=== PATIENT | male | born 1965 | race Caucasian/White ===

== ENCOUNTER 2018-11-12 12:05 | Outpatient (REF) | payer MEDICARE, SELFPAY ==
[2018-11-12 19:51] LABS: BUN 17 mg/dL (7-18); CREATININE 0.99 mg/dL (0.70-1.30); Calcium 8.9 mg/dL (8.5-10.1); Chloride 106 mmol/L (98-107); Glucose 100 mg/dL (70-100); Potassium 4.4 mmol/L (3.5-5.1); Sodium 142 mmol/L (136-145); TSH (W/Ref FT4) 3.29 uIU/mL (0.358-3.74)
== END 2018-11-12 12:25 ==
LOC: LBN 12:05
PROVIDERS: PCP Family Medicine; Visit Provider Family Medicine
DX: R73.01 Impaired fasting glucose (principal); E78.5 Hyperlipidemia, unspecified
CPT/HCPCS: 80048; 84443

== ENCOUNTER 2018-11-20 01:23 | Outpatient (CLI) | payer MEDICARE, SELFPAY ==
--- NOTE | 2018-11-20 10:01 | DI.CTLCSR_ITS ---
SYMPTOM/DIAGNOSIS: ROUTINE LUNG CANCER SCREENING, NICOTINE DEPENDENCE F17.210, CIGARETTE LOW DOSE CHEST CT FOR LUNG SCREENING: The noncontrast enhanced examination was carried out according to the usual protocol. No nodule or infiltrate is demonstrated. There is no pleural effusion. There are small regions of scarring and emphysematous changes noted in the lung apices more prominent on the right side. The heart is not enlarged. There is no evidence of a pleural or pericardial effusion. There is no evidence of gross hilar or mediastinal adenopathy SUMMARY: No pulmonary nodule is identified. Follow up surveillance of this patient with routine annual screening low dose chest CT is recommended. Lung Rads 1, negative study
== END 2018-11-20 01:43 ==
PROVIDERS: PCP Family Medicine; Visit Provider Family Medicine
DX: Z12.2 Encounter for screening for malignant neoplasm of respiratory organs (principal); F17.210 Nicotine dependence, cigarettes, uncomplicated; J98.4 Other disorders of lung
CPT/HCPCS: G0297

== ENCOUNTER 2022-11-07 10:36 | Emergency (ER) | payer MEDICARE, SELFPAY ==
[2022-11-07 11:08] VITALS: BP 111/72; PULSE 68; RESP 18; O2SAT 99
[2022-11-07] MEDS: Lidocaine 5% Patch 1 PATCH TP (12:15)
[2022-11-07] MEDS: Acetaminophen 500 MG TAB PO (12:15)
--- NOTE | 2022-11-07 12:18 | W.ED.GENAD ---
Discharge Plan Disposition Patient Disposition: Home Condition: Stable Discharge Details Clinical Impression: Right rib fracture Primary Care Provider: Joey Sullivan ED Provider: Ayush Mabry Home Meds and New Rx's Prescriptions: New oxycodone 5 mg tablet 5 mg PO BID PRN (Reason: severe pain) Qty: 10 0RF Discharge Instructions Instructions: Rib Fracture (ED) Additional Instructions: Please use incentive spirometer every 2 hours while awake for the next 1 week. Please take naproxen for pain. Dose according to label. Use lidocaine patches for pain. Dose according to label. Please take acetaminophen (tylenol) - 650mg every 6 hours by mouth as needed for pain. Take oxycodone as prescribed only for severe pain refractory to other above medications. Please contact your primary care physician to arrange follow-up. Return to the ER immediately for any worsening or new concerning symptoms. Referrals: Joey Sullivan DO [Primary Care Provider] - Medical Decision Making 1220 --57-year-old male here with right lower lateral rib pain that is persisted 1 week status post fall from standing with direct impact to his ribs. Patient has focal tenderness right lower lateral ribs. No crepitus. Lungs clear to auscultation bilaterally and patient is saturating well in no respiratory distress. Patient clinically stable. Abdominal exam benign. X-ray of the chest and ribs to assess for fracture and pneumothorax. We will treat pain with Tylenol and lidocaine patch. Patient has been taking naproxen. 1315 --x-ray with rib series interpreted by radiology: Right-sided rib fracture present. Plan to treat with incentive spirometry and analgesia. I will provide short course of oxycodone. Patient provided informed consent to this treatment. Usual customary discharge instructions otherwise reviewed. HPI General Mode of arrival: ambulatory. Date/Time Provider Initiated Documentation: 11/07/22 11:55. Limitations to Documentation: no limitations. Information obtained by: patient. HPI Narrative: 57-year-old male presents with chief complaint of right rib pain. Patient notes he slipped and fell 1 week ago and landed on his right side. He has had pain in his right rib since the fall. He notes difficulty sleeping at night. Pain is worse with deep inspiration. No associated abdominal pain. Related Data Home Medications Medication Instructions Recorded Confirmed oxycodone 5 mg tablet 5 mg PO BID PRN severe pain #10 11/07/22 tabs Previous Rx's Medication Instructions Recorded oxycodone 5 mg tablet 5 mg PO BID PRN severe pain #10 11/07/22 tabs Allergies Allergy/AdvReac Type Severity Reaction Status Date / Time No Known Drug Allergies Allergy Verified 11/07/22 11:11 General Stated Complaint: Orthopedic ELICEO: 4 Review of Systems Cardiovascular Cardiovascular: Denies dyspnea Respiratory Respiratory: Denies dyspnea Musculoskeletal Musculoskeletal: Reports as per HPI PFSH All Active Problems (Updated 11/07/22 @ 13:16 by Ayush Mabry MD) Right rib fracture (Acute) Depression (Chronic 10/25/17) Herniated lumbar intervertebral disc (Acute 10/25/17) Herniation of intervertebral disc of cervical region (Acute 10/25/17) Peptic ulcer (Acute 10/25/17) Swallowing painful (Acute 10/25/17) Testicular cyst (Acute 10/25/17) Tobacco use disorder (Acute 10/25/17) Impaired fasting glucose (Acute 10/25/17) Hyperlipidemia, unspecified (Acute 10/25/17) Hemoptysis (Acute 10/25/17) H/O drug abuse (Acute 10/25/17) Esophagitis (Acute 10/25/17) EGD W/ BX 11/18/11 Dysphagia, unspecified (Acute 10/25/17) Cervicalgia (Acute 10/25/17) Carpal tunnel syndrome, unspecified upper limb (Acute 10/25/17) Back pain (Acute 10/25/17) Surgical History EGD w/ bx (11/18/11) GANGLION CYST REMOVAL RIGHT HAND (11/17/17) Laminectomy x2 Lumbar Fusion Shoulder AC Resection Right Family History Mother Essential hypertension Paternal Grandfather CAD (coronary artery disease) Neoplasm Prostate Sister CAD (coronary artery disease) Sister No problems noted. Father No problems noted. Other Pacemaker Social History Smoking/Tobacco Use Status: Former Tobacco Use Smoking risk assessment performed?: Yes Alcohol Intake: never Drug use: Daily Substance use type: marijuana Household members: none Housing: house current occupation: works at [employer] on saturdays Pets and animals: Yes Pets and animals: dog(s) Do you feel safe at home: Yes Do you feel safe in your relationship?: Yes Exam Const General: cooperative and no acute distress HENMT Mouth: moist mucous membranes Neck Neck: trachea midline Chest Chest: no crepitus and tenderness rib (RIGHT LOWER LATERAL) Resp Auscultation: clear to auscultation bilaterally, no rales, no rhonchi and no wheezes Cardio Rate: regular rate and not tachycardic Rhythm: regular rhythm GI Palpation: soft, not firm, no guarding, no masses, not rigid and nontender Skin General skin exam: no rashes or lesions noted Neuro General: patient alert, patient awake and tone normal Extrem General: no edema Psych Appearance: grossly normal Mental Status: mental status grossly normal Course Vital Signs Vital signs: Vital Signs Pulse 68 11/07/22 11:08 Respiratory Rate 18 11/07/22 11:08 Blood Pressure 111/72 11/07/22 11:08 Pulse Oximetry 99 11/07/22 11:08 Temperature Source Skin 11/07/22 11:08 Pulse 68 11/07/22 11:08 Respiratory Rate 18 11/07/22 11:08 Respiratory Effort Normal 11/07/22 11:12 Blood Pressure 111/72 11/07/22 11:08 Blood Pressure Position Sitting 11/07/22 11:08 Pulse Oximetry 99 11/07/22 11:08 Oxygen Delivery Method Room Air 11/07/22 11:08 Oxygen Flow Rate 0 11/07/22 11:08 Pain Level 5 11/07/22 11:19 Comment Night time pain is a 10 11/07/22 11:08
--- NOTE | 2022-11-07 12:30 | DI.RAD_ITS ---
Exam(s) XR RIBS RT W PA LAT CHEST CLINICAL HISTORY: pain, fall 1 wk ago, ttp lower ant/lat ribs. COMPARISON: No exams were available for comparison TECHNIQUE:: PA and lateral views of the chest and four views of the right ribs were performed. FINDINGS: LUNGS:Clear. No pleural abnormality seen. HEART: Normal. MEDIASTINUM: Normal. BONES: Mildly displaced fracture lateral right 7th rib. Nondisplaced right 8th rib fracture. No bon y destructive lesion is seen. Old right distal clavicle deformity. Degenerative changes noted in th e spine. OTHER FINDINGS: None. IMPRESSION: 1. Right 7th and 8th rib fractures. 2. No acute pulmonary findings.
[2022-11-07 13:43] VITALS: BP 108/68; PULSE 61; RESP 16; TEMP 36.5; O2SAT 95
== END 2022-11-07 13:45 | disposition home or self-care (01) ==
PROVIDERS: Emergency Provider Student in an Organized Health Care Education/Training Program; PCP Family Medicine
DX: S22.31XA Fracture of one rib, right side, initial encounter for closed fracture (principal); W01.0XXA Fall on same level from slipping, tripping and stumbling without subsequent striking against object, initial encounter
CPT/HCPCS: 99283; 71046; 71100; 99284

== ENCOUNTER 2025-05-29 02:21 | Outpatient (CLI) | payer MEDICARE, SELFPAY ==
--- NOTE | 2025-05-29 07:30 | DI.CT_ITS ---
Exam(s) CT HEAD NECK W EXAM: CT HEAD NECK W CLINICAL HISTORY: New onset painful mass, R side of neck R22.1 F17.200 SMOKER. TECHNIQUE: Imaging Protocol: Axial computed tomography images with coronal and sagittal reformatted images were created and reviewed. CONTRAST MATERIAL: Intravenous: Omnipaque 350 contrast volume:100 mL COMPARISON: CT NECK WITH CONTRAST from 12/04/[address] CHEST LUNG CANCER SCREEN from 11/20/2018 FINDINGS: Head: Ventricles and Extra axial spaces: Normal in size and morphology for the patient's age. Hemorrhage: None. Cerebral parenchyma: Normal. There is no evidence of an acute territorial infarct or acute mass effect. Enhancement: No suspicious enhancement. [place]el of [place]: Unremarkable. Midline shift: None. Brainstem/Cerebellum: Normal. Calvarium: Normal. Visualized Paranasal sinuses/Mastoids: Clear. Soft tissues: Unremarkable. Neck: Orbits and orbital soft tissues: Within normal limits. Visualized paranasal sinuses: Within normal limits. Pharynx: Within normal limits. Larynx: Within normal limits. Retropharyngeal space: Within normal limits. Parotids/submandibular: Within normal limits. Thyroid gland: Within normal limits. Lymphadenopathy: There is scattered lymph nodes seen along the level one to level three all measuring less than 8 mm in short axis diameter which are physiologic in nature. Trachea: Within normal limits. Bones: Within normal limits for the patient's age. Carotids/Jugular: Within normal limits. Soft tissues: Within normal limits. IMPRESSION: 1. There is no evidence of a neck mass or adenopathy. 2. No acute intracranial process is seen. No intracranial mass or metastatic disease. 3. No acute head or neck process. RADIATION DOSE DELIVERED: 1,622.24mGy.cm Total DLP DATA REPOSITORY: All CT scans at this facility are submitted to the National Radiology Data Registry (NRDR) Dose Index Registry (DIR) with the [employer] (A[employer]). RADIATION OPTIMIZATION: All CT scans at this facility use at least one of these dose optimization techniques: automated exposure control; mA and/or kV adjustment per patient size (includes targeted exams where dose is matched to clinical indication); or iterative reconstruction.
--- NOTE | 2025-05-29 07:31 | DI.CT_ITS ---
Exam(s) CT CHEST W EXAM: CT CHEST W CLINICAL HISTORY: History of smoking, new painful mass in R side of NECK R22.1 F17.200 SMOKER TECHNIQUE: Imaging Protocol: Axial computed tomography images with coronal and sagittal reformatted images were created and reviewed. Computer aided detection (CAD) was utilized. CONTRAST MATERIAL: Intravenous: Omnipaque 350Contrast volume:100 mL. COMPARISON: CT CT CHEST LUNG CANCER SCREEN from 11/20/2018 CR XR RIBS RT W PA LAT CHEST from 11/07/[address] HEAD NECK W from 05/29/2025 FINDINGS: Tracheobronchial tree: Patent where visualized. No evidence of bronchiectasis. Pulmonary parenchyma: No consolidation or dominant measurable mass. Emphysematous changes are present in the lungs. Mediastinum and [place]: No dominant adenopathy or fluid collection. The esophagus is unremarkable. Thyroid gland: Unremarkable. Pleura: No effusion or pneumothorax. Heart: The heart is not dilated. No coronary artery calcifications are seen. No pericardial effusion. Aorta: Thoracic aorta non-dilated. There is no evidence of dissection. Pulmonary arteries: Due to the timing of the bolus, the pulmonary arteries are inadequately opacified for evaluation of pulmonary emboli. Upper abdomen: Unremarkable. Lymph nodes: Within normal limits. Bones: Within normal limits for the patient's age. Old fracture deformity is seen in the right clavicle and scapula. Soft tissues: There is gynecomastia. IMPRESSION: 1. There is no evidence of a pulmonary mass or thoracic metastatic disease. 2. Emphysematous changes in the lungs. 3. No acute pulmonary process. RADIATION DOSE DELIVERED: Total DLP DATA REPOSITORY: All CT scans at this facility are submitted to the National Radiology Data Registry (NRDR) Dose Index Registry (DIR) with the [employer] (ACR). RADIATION OPTIMIZATION: All CT scans at this facility use at least one of these dose optimization techniques: automated exposure control; mA and/or kV adjustment per patient size (includes targeted exams where dose is matched to clinical indication); or iterative reconstruction.
[2025-05-29 14:17] LABS: Estimated GFR 96.57 (mL/min/1.73m2)
[2025-05-29] MEDS: Normal Saline - Diluent 50 ML VIAL IJ (14:43)
[2025-05-29] MEDS: Normal Saline Flush 10 ML SYR IVP (14:43)
[2025-05-29] MEDS: Omnipaque 350 MG/ML 100 ML BTL IJ (14:44)
[2025-05-30 11:22] LABS: Lyme Ab w Rflx to Lyme Confirm Positive (Negative)
[2025-05-30 12:35] LABS: Lyme IgG Ab Positive (Negative)
[2025-05-31 21:36] LABS: B. miyamotoi PCR Negative (Negative); Babesia divergens/MO-1 Negative (Negative); Ehrlichia muris eauclairensis Negative (Negative)
== END 2025-05-29 02:41 ==
LOC: DI 02:22
PROVIDERS: Nurse Practitioner Family; PCP Family Medicine; Visit Provider Family Medicine
DX: R53.83 Other fatigue (principal); W57.XXXA Bitten or stung by nonvenomous insect and other nonvenomous arthropods, initial encounter; R22.1 Localized swelling, mass and lump, neck; Z87.891 Personal history of nicotine dependence
CPT/HCPCS: 70491; 86617; 87798; 70460; 71260; 82565; 86618; J3490